=== PATIENT | male | born 1975 | race Caucasian/White ===

== ENCOUNTER 2017-05-05 00:10 | Emergency (ER) | payer BC ==
[2017-05-05] MEDS ORDERED: Morphine 4 MG/ML VIAL ONE (00:23)
[2017-05-05] MEDS ORDERED: Ondansetron HCl/PF 4 MG/2 ML Vial ONE (00:23)
[2017-05-05] MEDS ORDERED: Ketorolac Tromethamine 30 MG/ML VIAL ONE (00:26)
[2017-05-05 00:51] LABS: #Eosinphils 0.1 thou/uL (0.0-0.7); #Lymphocytes 0.9 thou/uL (1.20-3.40); #Monocytes 0.7 thou/uL (0.11-0.59); #Neutrophils 3.9 thou/uL (1.40-6.50); %Basophils 0.3 % (0.0-1.0); %Lymphocytes 16.5 % (21.0-51.0); %Neutrophils 68.2 % (42.0-75.0); Hemoglobin 14.9 g/dL (14.0-18.0); Mean Corpuscular HGB CONC 34.4 g/dL (32.0-36.0); Mean Corpuscular Hemoglobin 31.3 pg (27.0-31.0); Mean Platelet Volume 8.2 fL (7.4-10.4); Platelet Count 148 thou/uL (130-400); RBC Distribution Width 12.7 % (11.5-14.5); Red Blood Cell (RBC) Count 4.77 mill/uL (4.70-6.10); White Blood Cell (WBC) Count 5.6 thou/uL (4.8-10.8)
[2017-05-05 00:52] LABS: Bilirubin Negative (Negative); Blood, Urine Negative (Negative); Clarity CLEAR (Clear); Glucose, Urine (Dipstick) Negative (Negative); Leukocyte Negative (Negative); Nitrite Negative (Negative); Protein, Urine (Dipstick) Negative (Neg-Trace); Specific Gravity, Urine 1.026 (1.002-1.036)
[2017-05-05 01:04] LABS: ALT (SGPT) 23 U/L (8-55); AST (SGOT) 25 U/L (5-34); Albumin 4.4 g/dL (3.5-5.0); Alkaline Phosphatase 56 U/L (40-150); Anion Gap 14 mmol/L (10-20); BUN (Urea Nitrogen) 17 mg/dL (8.9-20.6); Bilirubin, Total 0.8 mg/dL (0.2-1.2); Calc. Creatinine Clearance 0 mL/min (70-130); Calcium 9.2 mg/dL (7.8-10.44); Carbon Dioxide 21 mmol/L (22-29); Chloride 110 mmol/L (98-107); Estimated GFR-MDRD 67; Globulin 2.5 g/dL (2.4-3.5); Glucose 105 mg/dL (70-105); Potassium 4.1 mmol/L (3.5-5.1); Protein, Total 6.9 g/dL (6.0-8.3); Sodium 141 mmol/L (136-145)
--- NOTE | 2017-05-05 07:59 | CT ---
PRELIMINARY REPORT/[facility]/EMERGENCY AFTER HOURS PROCEDURE: EXAM: CT Abdomen and Pelvis Without Intravenous Contrast CLINICAL HISTORY: 42 years old, male; Pain; Abdominal pain; Other: Groin; Patient HX: 42 yo m. Pt with sudden onset of left lower abd pain and left groin pain, sharp, and intermittent in severity approx. 45 min ago. Tushar es hematuria. Reports nausea. Reports HX of kidney stones. TECHNIQUE: Axial computed tomography images of the abdomen and pelvis without intravenous contrast. Coronal reformatted images were created and reviewed. COMPARISON: No relevant prior studies available. FINDINGS: Lower thorax: No acute findings. ABDOMEN: Liver: Unremarkable. Gallbladder and bile ducts: Unremarkable. No calcified stones. No ductal dilation. Pancreas: Unremarkable. No ductal dilation. Spleen: There is splenomegaly. Adrenals: Unremarkable. No mass. Kidneys and ureters: There is a 3 mm calculus in the terminal left ureter with mild left obstructive uropathy. Stomach and bowel: Unremarkable. No obstruction. No mucosal thickening. Appendix: No findings to suggest acute appendicitis. PELVIS: Bladder: Unremarkable. No stones. Reproductive: There are mild prostate gland calcifications. ABDOMEN and PELVIS: Intraperitoneal space: Unremarkable. No free air. No significant fluid collection. Bones/joints: No acute fracture. No dislocation. Soft tissues: Unremarkable. Vasculature: Unremarkable. No abdominal aortic aneurysm. Lymph nodes: Unremarkable. No enlarged lymph nodes. IMPRESSION: There is a 3 mm calculus in the terminal left ureter with mild left obstructive uropathy. Thank you for allowing us to participate in the care of your patient. Dictated and Authenticated by: Holden Bynum MD 05/05/2017 1:14 AM Central Time ([place] & [place]) FINAL REPORT CT ABDOMEN AND PELVIS WITHOUT CONTRAST: I agree with the preliminary report given by Dr. Holden Bynum of [facility]. POS: [facility]
== END 2017-05-05 02:12 | disposition home or self-care (01) ==
LOC: ERS 00:10
DX: N13.2 Hydronephrosis with renal and ureteral calculous obstruction (principal); E03.9 Hypothyroidism, unspecified; G43.909 Migraine, unspecified, not intractable, without status migrainosus
CPT/HCPCS: 74176; 80053; 81003; 83690; 85025; J1885; J2270; J2405

== ENCOUNTER 2017-05-05 06:31 | Emergency (ER) | payer BC ==
[2017-05-05] MEDS ORDERED: Ondansetron HCl/PF 4 MG/2 ML Vial ONE (06:43)
[2017-05-05] MEDS ORDERED: Morphine 4 MG/ML VIAL ONE ×2 (06:43→07:38)
[2017-05-05] MEDS ORDERED: Ketorolac Tromethamine 30 MG/ML VIAL ONE (07:38)
[2017-05-05] MEDS ORDERED: HYDROcodone/Acetaminophen 5/325 mg Tablet ONE (08:22)
== END 2017-05-05 08:34 | disposition home or self-care (01) ==
LOC: ERS 06:31
DX: N20.0 Calculus of kidney (principal); E03.9 Hypothyroidism, unspecified; G43.909 Migraine, unspecified, not intractable, without status migrainosus
CPT/HCPCS: 74176; 80053; 81003; 83690; 85025; 96361; 96374; 96375; 96376; J1885; J2270; J2405

== ENCOUNTER 2019-05-20 14:56 | Observation (INO) | payer BC ==
[2019-05-20] MEDS ORDERED: Acetaminophen 500 MG TAB PO PRN (16:56)
[2019-05-20] MEDS ORDERED: SUMAtriptan Succinate 50 MG TAB PO PRN (16:56)
[2019-05-20] MEDS ORDERED: Ondansetron ODT 4 MG TAB PO PRN (16:56)
[2019-05-20] MEDS ORDERED: Ondansetron PF 4 MG/2 ML Vial IVP PRN (16:56)
[2019-05-20] MEDS ORDERED: Ketorolac Tromethamine 30 MG/ML VIAL IVP PRN (16:56)
[2019-05-20 17:36] VITALS: BMI 28.8
[2019-05-20] MEDS: Sodium Chloride 0.9% 1,000 ML IV SCH (18:18)
[2019-05-20] MEDS: Famotidine 20 MG TAB PO SCH (21:14)
--- NOTE | 2019-05-20 22:35 | HP ---
PRIMARY CARE PROVIDER: Ketan Allred. CHIEF COMPLAINT: Visual changes and headache. HISTORY OF PRESENT ILLNESS: This is a 44-year-old male, who initially presented to [facility] Emergency Department in [place], [place] complaining of confusion, visual changes, and headache. The patient states the symptoms began and most noticeable while reading a book and text messages when he was unable to focus clearly on the words. The patient noticed visual changes in his eyes and noted flashes of light in the periphery of his vision that moved across his vision when closing his eyes. The patient denied any recent trauma, injury, dental procedures, surgical procedures, fever, chills, or travel history. The patient denied any prior similar incidences in the past. The patient does admit to history of migraine headaches intermittently, but denied taking any prophylactic or abortive migraine medications. The patient denied any change to his chronic medication regimen and states the only prescription medicine he takes is levothyroxine. The patient admitted to some confusion when he experienced the visual disturbance and had difficulty with some speech according to the . The patient became concerned, at which point, he presented to [facility] for evaluation. Initial workup included CT imaging of the brain after concern for CVA with negative findings. Metabolic screening was essentially unremarkable. The patient received aspirin 325 mg, Dilaudid 0.5 mg IV push, Zofran, and intravenous normal saline. The patient was transferred to [facility] for further evaluation and potential stroke workup. PAST MEDICAL HISTORY: 1. Migraine headaches, intermittent. 2. Hypothyroidism, on chronic levothyroxine. PAST SURGICAL HISTORY: 1. Status post appendectomy. 2. Status post sinus surgery. CURRENT MEDICATIONS: 1. Claritin p.r.n. 2. Levothyroxine, dose unknown. 3. Multivitamin 1 tablet p.o. daily. 4. Zyrtec p.r.n. ALLERGIES: NO KNOWN DRUG ALLERGIES. FAMILY HISTORY: No inheritable diseases per the patient report. SOCIAL HISTORY: and resides in [place], [place]. Works as a company driver. No current alcohol, tobacco, or illicit drug use. Functional of all activities of daily living. REVIEW OF SYSTEMS: CONSTITUTIONAL: Negative for weight loss or gain, ability to conduct usual activities. SKIN: Negative for rash, itching. EYES: Negative for double vision, pain. ENT/MOUTH: Negative for nose bleeding, neck stiffness, pain, tenderness. CARDIOVASCULAR: Negative for palpitations, dyspnea on exertion, orthopnea. RESPIRATORY: Negative for shortness of breath, wheezing, cough, hemoptysis, fever or night sweats. GASTROINTESTINAL: Negative for poor appetite, abdominal pain, heartburn, nausea, vomiting, constipation, or diarrhea. GENITOURINARY: Negative for urgency, frequency, dysuria, nocturia. MUSCULOSKELETAL: Negative for pain, swelling. NEUROLOGIC/PSYCHIATRIC: Negative for anxiety, depression. ALLERGY/IMMUNOLOGIC: Negative for skin rash, bleeding tendency. Otherwise, negative except as stated per HPI. PHYSICAL EXAMINATION: VITAL SIGNS: On admission, blood pressure 151/100, pulse 72, respiratory rate 16, temperature 96.8 degrees Fahrenheit, O2 saturation 98% on room air. GENERAL APPEARANCE: This is a 44-year-old male, lying on the hospital bed, alert and oriented x3, pleasant, in mild distress. HEENT: Pupils are equal, round, and reactive to light and accommodation. Extraocular muscles are intact. No scleral icterus. No conjunctival injection. Nares are patent. OP is clear. Teeth in good repair. NECK: Supple. No cervical adenopathy. No thyromegaly. No JVD appreciated. Cervical spine with full active and passive range of motion. No meningeal signs noted. CHEST: Lungs are clear to auscultation bilaterally. CARDIOVASCULAR: S1 and S2 without noted murmur, rub, or gallop. ABDOMEN: Rounded, soft, nontender, and nondistended. Bowel sounds are positive in all 4 quadrants. There is no hepatosplenomegaly. No abdominal bruits. No rebound or guarding appreciated. EXTREMITIES: Warm and dry with good turgor. No clubbing, cyanosis, or asymmetric edema appreciated. Pulses palpable distally at the dorsalis pedis, posterior tibial, and popliteal arteries bilaterally. Capillary refill less than 2 seconds. NEUROLOGIC: Cranial nerves 2 through 12 are grossly intact. No focal or lateralizing signs appreciated. PERTINENT LABORATORY AND X-RAY FINDINGS: Sodium 142, potassium 3.9, chloride 104, CO2 of 29, BUN 13, creatinine 1.2, calcium 9.4. LFTs within normal limits. Urinalysis, negative. CBC within normal limits. Urine drug screen, negative. PT 15.4, INR 1.3. EKG dated 05/20/2019, by my interpretation shows a sinus mechanism with heart rates in the 70s. Normal R-wave progression noted in the precordial leads. Normal axis. No acute ST-T wave changes appreciated. CT of the brain without contrast showed no acute intracranial process. ASSESSMENT AND PLAN: 1. Transient ischemic attack. The patient will be observed on the stroke unit. Questionable transient ischemic attack at presentation versus complex migraine. We will proceed with MRI imaging of the brain to definitively rule out stroke. Check fasting lipid profile in the a.m. 2. Migraine headache with scotoma. Suspect the patient's presentation consistent with migraine. We will initiate trial of Imitrex 50 mg p.o. p.r.n. migraine headaches. Toradol 30 mg IV q.6 hours p.r.n. The patient may need consideration for prophylactic therapy versus an abortive treatment after discharge. 3. Acute metabolic encephalopathy. Suspect secondarily to #2. We will continue supportive management and monitor clinical response. 4. Hypothyroidism. Check free T4 and TSH level in the a.m. Confirm home levothyroxine dose. 5. Prophylaxis. Sequential compression devices while in bed. Pepcid 20 mg p.o. b.i.d. 6. Code status is full. Surrogate medical decision maker is the patient's spouse. Job ID: [id number]
[2019-05-21] MEDS: Sodium Chloride 0.9% 1,000 ML IV SCH ×2 (02:28→10:40)
[2019-05-21 05:23] LABS: Anion Gap 10 mmol/L (10-20); BUN (Urea Nitrogen) 13 mg/dL (8.9-20.6); Calc. Creatinine Clearance 112 mL/min (70-130); Calcium 8.2 mg/dL (7.8-10.44); Carbon Dioxide 23 mmol/L (22-29); Chloride 111 mmol/L (98-107); Estimated GFR-MDRD 68; Glucose 110 mg/dL (70-105); Potassium 3.7 mmol/L (3.5-5.1); Sodium 140 mmol/L (136-145)
[2019-05-21 05:25] LABS: Band 2 % (5-11); Hemoglobin 13.2 g/dL (14.0-18.0); Lymphocytes 47 % (21-51); MDiff Complete? YES; Mean Corpuscular HGB CONC 37.7 g/dL (32.0-36.0); Mean Corpuscular Hemoglobin 35.2 pg (27.0-31.0); Mean Corpuscular Volume 93.4 fL (78.0-98.0); Mean Platelet Volume 8.1 fL (7.4-10.4); Monocytes 6 % (0-10); Neutrophil 43 % (42-75); Platelet Count 147 thou/uL (130-400); RBC Distribution Width 13.1 % (11.5-14.5); Reactive Lymphocytes 2 % (0-10); Red Blood Cell (RBC) Count 3.76 mill/uL (4.70-6.10); White Blood Cell (WBC) Count 6.2 thou/uL (4.8-10.8)
[2019-05-21 05:42] LABS: Free T4 (Free Thyroxine) 1.07 ng/dL (0.70-1.48); Thyroid Stimulating Hormone 0.2292 uIU/mL (0.35-4.94)
[2019-05-21] MEDS: Famotidine 20 MG TAB PO SCH (08:25)
--- NOTE | 2019-05-21 11:41 | MRI ---
MRI BRAIN WITH AND WITHOUT CONTRAST: DATE: 05/21/2019 HISTORY: 44-year-old male with stroke symptoms: Right visual loss TECHNIQUE: Multiplanar, multisequence MRI of the brain obtained pre and post IV injection of gadolinium based co ntrast agent. FINDINGS: The ventricles are normal in size and configuration. There is no midline shift or any other evidence of mass effect. There is no extra-axial fluid collection. There is no intra-axial signal abnormality, abnormal enhancement, mass, recent hemorrhage, or restricted diffusion. IMPRESSION: Normal
[2019-05-21] MEDS ORDERED: Magnevist 469MG/ML 20 ML VIAL ONE (11:45)
[2019-05-21 12:04] VITALS: BP 125/86; TEMP 97.9
--- NOTE | 2019-05-22 06:42 | DIS ---
DATE OF ADMISSION: 05/20/2019 DATE OF DISCHARGE: 05/21/2019 DISCHARGE DIAGNOSES: 1. Complex migraine, resolved. 2. Hypothyroidism, stable. CONSULTATIONS: None. PERTINENT LABORATORY AND X-RAY FINDINGS: TSH 0.23, free T4 of 1.07. CT of the brain without contrast dated 05/20/2019 showed no acute intracranial process. MRI of the brain dated 05/21/2019 showed no acute intracranial process. HOSPITAL COURSE: The patient was observed on the Stroke Unit after initially presenting with questionable TIA like symptoms versus complex migraine presentation. The patient underwent general evaluation including CT and MRI imaging modalities of the brain showing no acute process. The patient's presentation consistent with complex migraine with recommendations for supportive management. Discussed the use of Imitrex or similar class of medication for abortive management, and the patient states he has these prescriptions at home currently. Overall, the patient did remain clinically stable during the hospital course. I have examined the patient at the time of discharge and discussed followup instructions. The patient is stable for discharge on 05/21/2019. DISCHARGE MEDICATIONS: Levothyroxine 150 mcg p.o. daily. FOLLOWUP: The patient may follow up with his primary care provider, Dr. Bam Griffin, within 7 to 10 days of discharge. CONDITION ON DISCHARGE: Stable. ACTIVITY: Ad-denae. DIET: Regular. CODE STATUS: Full. DISPOSITION: To home on 05/21/2019. Job ID: [id number]
== END 2019-05-21 14:16 | disposition home or self-care (01) ==
LOC: 2SE 17:19
PROVIDERS: ADMIT Family Medicine; ATTEND Family Medicine
DX: G43.809 Other migraine, not intractable, without status migrainosus (principal); H53.459 Other localized visual field defect, unspecified eye; G93.41 Metabolic encephalopathy; E03.9 Hypothyroidism, unspecified; Z79.899 Other long term (current) drug therapy
CPT/HCPCS: 36415; 70553; 80048; 84439; 84443; 85007; 85027; 96360; 96361; A9579; G0378